=== PATIENT | female | born 1980 | race Caucasian/White ===

== ENCOUNTER 2018-07-26 13:19 | Emergency (ER) | payer MEDICAID ==
[2018-07-26 14:46] LABS: ABS Basophils 0 10^3/ul (0-0.2); ABS Eosinophils 0 10^3/ul (0-0.6); ABS Lymphocytes 1.4 10^3/ul (1.0-4.8); ABS Monocytes 0.4 10^3/ul (0-0.8); ABS Neutrophils 6.3 10^3/ul (1.5-7.7); ABS Nucleated RBC 0 10^3/ul; Eosinophil % 0.4 %; Hematocrit 39 % (35-47); Lymphocyte % 16.8 %; Mean Corpuscular HGB Conc 33 g/dl (31-36); Mean Corpuscular Hemoglobin 28 pg (27-31); Mean Corpuscular Volume 83 fL (80-97); Mean Platelet Volume 7.5 fL (7.4-10.4); Nucleated Red Blood Cells % 0; Platelet Count 318 10^3/ul (150-450); Red Cell Distribution Width 13 % (10.5-15); White Blood Count 8.1 10^3/ul (3.5-10.8)
[2018-07-26 15:01] LABS: Albumin 4.8 g/dL (3.2-5.2); Anion Gap 7 mmol/L (2-11); CO2 Carbon Dioxide 25 mmol/L (22-32); Calcium 9.7 mg/dL (8.6-10.3); Chloride 104 mmol/L (101-111); Potassium 3.6 mmol/L (3.5-5.0); Sodium 136 mmol/L (135-145)
[2018-07-26 15:07] LABS: ALT 17 U/L (7-52); AST 18 U/L (13-39); Albumin/Globulin Ratio 1.7 (1-3); Alkaline Phosphatase 68 U/L (34-104); BUN/Creatinine Ratio 15.5 (8-20); Blood Urea Nitrogen 13 mg/dL (6-24); EGFR African American 92.3 (>60); EGFR Non-African American 76.3 (>60); Globulin 2.9 g/dL (2-4); Glucose 110 mg/dL (70-100); Total Protein 7.7 g/dL (6.4-8.9)
[2018-07-26 15:12] LABS: HCG Pregnancy < 0.60 mIU/mL
[2018-07-26] MEDS ORDERED: Iohexol 300* (CONTRAST) 10 ML SDV IV ONE ×2 (15:19→16:53)
--- NOTE | 2018-07-26 15:35 | ED ---
GI/ HPI - HPI Summary HPI Summary: Patient is a 38-year-old female who presents emergency department for who presents emergency department complaining of rectal pain 2 weeks. Patient states pain increases after a bowel movement. She denies blood in stools. Patient denies fever, chills. Patient states she feels as though there is a lump around her anus. She denies concern for STD or anal sex. Pt. was seen at the [facility] this week by Sujata Marshall NP who suspects pt. has levator ani syndrome and has set pt. up with PT for this week but she is concerned there may be something else going on causing rectal pain and recommended pt. come to the ER for labs and possible imaging. Symptoms are moderate in severity. No current modifying factors. - History of Current Complaint Chief Complaint: EDRectalPain Time Seen by Provider: 07/26/18 13:35 Stated Complaint: RECTAL PAIN Hx Obtained From: Patient Pain Intensity: 2 - Allergy/Home Medications Allergies/Adverse Reactions: Allergies Allergy/AdvReac Type Severity Reaction Status Date / Time amoxicillin Allergy Diarrhea Verified 07/26/18 13:26 doxycycline Allergy Hives/Diff. Verified 07/26/18 13:26 Breathing/I tching Penicillins Allergy Vomiting Verified 07/26/18 13:26 Home Medications: Home Medications NK [No Home Medications Reported] 07/26/18 [History Confirmed 07/26/18] PMH/Surg Hx/FS Hx/Imm Hx Previously Healthy: Yes Endocrine/Hematology History: Denies: Hx Diabetes Cardiovascular History: Denies: Hx Hypertension History: Denies: Hx Renal Disease Infectious Disease History: No Infectious Disease History: Denies: Traveled Outside the [place] in Last 30 Days - Family History Known Family History: Positive: Non-Contributory - Social History Occupation: Works From/At Home Lives: With Family Alcohol Use: Occasionally Substance Use Type: Reports: None Smoking Status (MU): Never Smoked Tobacco Review of Systems Constitutional: Negative Negative: Fever, Chills Gastrointestinal: Other - rectal pain Positive: Other. Negative: Abdominal Pain, Vomiting, Diarrhea, Nausea All Other Systems Reviewed And Are Negative: Yes Physical Exam Triage Information Reviewed: Yes Vital Signs On Initial Exam: Initial Vitals Temp Pulse Resp BP Pulse Ox 98.7 F 69 18 131/91 100 07/26/18 13:20 07/26/18 13:20 07/26/18 13:20 07/26/18 13:20 07/26/18 13:20 Vital Signs Reviewed: Yes Appearance: Positive: Well-Appearing - Pt. sitting up in bed in NAD. Mother present. Skin: Positive: Warm, Dry Head/Face: Positive: Normal Head/Face Inspection Eyes: Positive: Normal, EOMI Abdomen Description: Positive: Nontender, Soft, Other: - Recal exam performed with female tech in room, Jillian. Nonthrombosed hemorrhoids noted. Pain on palpation to the left aspect of the rectum around 9:00. There is induration palpated this area. Attempted to perform digital rectal exam but patient was in significant pain and was not able to fully evaluate rectum. No bleeding. No obvious signs of abscess or fissure. Musculoskeletal: Positive: Normal, Strength/ROM Intact Neurological: Positive: Normal, CN Intact II-III Diagnostics - Vital Signs Vital Signs Temp Pulse Resp BP Pulse Ox 07/26/18 13:20 98.7 F 69 18 131/91 100 - Laboratory Lab Results: Lab Results 07/26/18 07/26/18 Range/Units 14:23 14:23 WBC 8.1 (3.5-10.8) 10^3/ul RBC 4.70 (4.00-5.40) 10^6/ul Hgb 13.0 (12.0-16.0) g/dl Hct 39 (35-47) % MCV 83 (80-97) fL MCH 28 (27-31) pg MCHC 33 (31-36) g/dl RDW 13 (10.5-15) % Plt Count 318 (150-450) 10^3/ul MPV 7.5 (7.4-10.4) fL Neut % (Auto) 78.0 % Lymph % (Auto) 16.8 % [place]ack[place]ord % (Auto) 4.5 % Eos % (Auto) 0.4 % Baso % (Auto) 0.3 % Absolute Neuts (auto) 6.3 (1.5-7.7) 10^3/ul Absolute Lymphs (auto) 1.4 (1.0-4.8) 10^3/ul Absolute Monos (auto) 0.4 (0-0.8) 10^3/ul Absolute Eos (auto) 0 (0-0.6) 10^3/ul Absolute Basos (auto) 0 (0-0.2) 10^3/ul Absolute Nucleated RBC 0 10^3/ul Nucleated RBC % 0 Sodium 136 (135-145) mmol/L Potassium 3.6 (3.5-5.0) mmol/L Chloride 104 (101-111) mmol/L Carbon Dioxide 25 (22-32) mmol/L Anion Gap 7 (2-11) mmol/L BUN 13 (6-24) mg/dL Creatinine 0.84 (0.51-0.95) mg/dL Est GFR ( Amer) 92.3 (>60) Est GFR (Non-Af Amer) 76.3 (>60) BUN/Creatinine Ratio 15.5 (8-20) Glucose 110 H (70-100) mg/dL Calcium 9.7 (8.6-10.3) mg/dL Total Bilirubin 0.50 (0.2-1.0) mg/dL AST 18 (13-39) U/L ALT 17 (7-52) U/L Alkaline Phosphatase 68 (34-104) U/L C-Reactive Protein 7.60 (<8.01) mg/L Total Protein 7.7 (6.4-8.9) g/dL Albumin 4.8 (3.2-5.2) g/dL Globulin 2.9 (2-4) g/dL Albumin/Globulin Ratio 1.7 (1-3) Beta HCG, Quant < 0.60 mIU/mL Result Diagrams: 07/26/18 14:23 07/26/18 14:23 Lab Statement: Any lab studies that have been ordered have been reviewed, and results considered in the medical decision making process. GIGU Course/Dx - Course Course Of Treatment: Pt. presenting to the ER for rectal pain x 2 weeks. Pain worse after BM. Pt. states she has been feeling a hardened area around rectum. She was sent by PCP for further evalation of possible abscess. Pt. well appearing in the ER and afebrile. Exam is limited secondary to pt.'s pain. Labs and CT scan ordered. Labs are unremarkable. CT scan is negative for acute findings. Results discussed with pt. She states she has an apt. with PT in two days. She has states she was rx magnesium by PCP to try to help with spasms and pain. Advised to continue warm baths. Advised she may need to see GI/Sx for further testing and evaluation is sxs persist. Pt. understands and agrees with plan. - Diagnoses Differential Diagnoses - Female: Hemorrhoids, Prolapsed Rectum, Pruitis Ani, Rectal Fissure, STD Provider Diagnoses: Rectal pain, Rectal spasm Discharge - Sign-Out/Discharge Documenting (check all that apply): Patient Departure Patient Received Moderate/Deep Sedation with Procedure: No - Discharge Plan Condition: Good Disposition: HOME Patient Education Materials: Rectal Pain (ED) Referrals: Leah Marshall NP [Primary Care Provider] - Additional Instructions: Schedule a follow up appointment with PCP You may need to be referred to a death claim examiner for further evaluation Follow up with physical therapy on Friday as scheduled Continue warm baths Return to ER if symptoms change or worsen - Billing Disposition and Condition Condition: GOOD Disposition: Home
[2018-07-26 18:33] VITALS: BP 132/79
== END 2018-07-26 18:32 | disposition home or self-care (01) ==
LOC: ED 13:19
DX: K62.89 Other specified diseases of anus and rectum (principal); K59.4 Anal spasm; Z88.0 Allergy status to penicillin
CPT/HCPCS: 36415; 72193; 80053; 84702; 85025; 86140; 99283

== ENCOUNTER 2018-10-29 20:27 | Emergency (ER) | payer BC, MEDICAID ==
[2018-10-29] MEDS ORDERED: Ondansetron INJ* 2 MG/ML VIAL IV ONE (23:23)
[2018-10-29] MEDS ORDERED: NS 0.9% 1000 ML** 1,000 ML IV ONE (23:24)
[2018-10-29] MEDS ORDERED: Meclizine TAB* 12.5 MG PO ONE (23:24)
--- NOTE | 2018-10-29 23:33 | ED ---
Nausea/Vomiting/Diarrhea HPI - HPI Summary HPI Summary: Patient is a 38 year old female with hx of irritable bowel syndrome who c/o nausea and epigastric pain x 4 days. She denies changes in BM and vomiting. She describes the abd pain as "pressure" and rates it at 7/10 at its worst and is currently 4/10. She had a bloody BM 2-3 weeks ago but denies bloody stool since. She states she is bloated. She also notes intermittent dizziness, fatigue , chest pain, headaches, diffuse muscle pain, back pain, and shortness of breath. She states she is currently dizzy but that her dizziness worsens especially prior to and during bowel movements. She denies family hx of Crohn's and ulcerative colitis. She notes having been treated 2 weeks ago for a UTI and vaginal yeast infection and that her symptoms have since resolved. She states dizziness in worst with movement. states dizziness only last a couple seconds. no chest pain or SOB. did recently travel back from [place]. no pain or swelling in her calf muscles. her abdominal pain is worst after eating. - History of Current Complaint Chief Complaint: EDIndy Stated Complaint: HEADACHE/LIGTHEADED PER PT Time Seen by Provider: 10/29/18 22:59 Hx Obtained From: Patient Hx Last Menstrual Period: 1 week ago. Timing: Intermittent Episodes Lasting: Pain Intensity: 4 - Current. Pain Scale Used: 0-10 Numeric Location: Epigastric Character: Sharp - "Pressure" Alleviating Factor(s): Bowel Movement Nausea/Vomiting Presence: Nauseated Diarrhea Presence: No - Allergies/Home Medications Allergies/Adverse Reactions: Allergies Allergy/AdvReac Type Severity Reaction Status Date / Time amoxicillin Allergy Diarrhea Verified 10/29/18 20:35 doxycycline Allergy Hives/Diff. Verified 10/29/18 20:35 Breathing/I tching Penicillins Allergy Vomiting Verified 10/29/18 20:35 PMH/Surg Hx/FS Hx/Imm Hx Endocrine/Hematology History: Denies: Hx Diabetes Cardiovascular History: Denies: Hx Hypertension GI History: Reports: Hx Irritable Bowel History: Denies: Hx Renal Disease Psychiatric History: Reports: Hx Anxiety Infectious Disease History: No Infectious Disease History: Reports: Traveled Outside the [place] in Last 30 Days - Family History Family History: Denies FHx of inflammatory bowel disease. - Social History Occupation: Employed Full-time - [employer] driver. Alcohol Use: Occasionally - Denies recent alcohol use. Substance Use Type: Reports: None Smoking Status (MU): Never Smoked Tobacco Review of Systems Positive: Fatigue. Negative: Fever, Chills Positive: Sore Throat Positive: Chest Pain. Negative: Palpitations Positive: Shortness Of Breath. Negative: Cough Positive: Abdominal Pain - Epigastric "pressure", Nausea, Other - Bloating.. Negative: Vomiting, Diarrhea Negative: dysuria, hematuria Positive: Myalgia - Diffuse. Neurological: Other - Dizziness. Positive: Headache. Negative: Weakness, Numbness Psychological: Normal All Other Systems Reviewed And Are Negative: Yes Physical Exam Triage Information Reviewed: Yes Vital Signs On Initial Exam: Initial Vitals Temp Pulse Resp BP Pulse Ox 97.5 F 77 16 150/94 100 10/29/18 20:30 10/29/18 20:30 10/29/18 20:30 10/29/18 20:30 10/29/18 20:30 Vital Signs Reviewed: Yes Appearance: Positive: Well-Appearing Skin: Positive: Warm, Dry Head/Face: Positive: Normal Head/Face Inspection Eyes: Positive: Normal ENT: Positive: Normal ENT inspection, Pharynx normal. Negative: Pharyngeal erythema Neck: Positive: Supple, Nontender, No Lymphadenopathy Respiratory/Lung Sounds: Positive: Clear to Auscultation. Negative: Rales, Rhonchi Cardiovascular: Positive: Normal, RRR. Negative: Murmur, Rub Abdomen Description: Positive: Soft, CVA Tenderness (R). Negative: Nontender - Epigastric tenderness., Distended, Guarding Bowel Sounds: Positive: Present Musculoskeletal: Positive: Normal Neurological: Positive: Sensory/Motor Intact, Alert, Oriented to Person Place, Time, CN Intact II-III Psychiatric: Positive: Normal Diagnostics - Vital Signs Vital Signs Temp Pulse Resp BP Pulse Ox 10/29/18 20:30 97.5 F 77 16 150/94 100 - Laboratory Result Diagrams: 10/29/18 23:36 10/29/18 23:36 Lab Statement: Any lab studies that have been ordered have been reviewed, and results considered in the medical decision making process. - Ultrasound No standard instances Ultrasound Interpretation Completed By: Radiologist Summary of Ultrasound Findings: Negative right upper quadrant sonogram. No gallstones. - EKG No standard instances Cardiac Rate: NL EKG Rhythm: Sinus Rhythm Summary of EKG Findings: sinus rhythm Re-Evaluation - Re-Evaluation First Eval Re-Evaluation Time: 00:45 Change: Improved Comment: Patient reports epigastric pain and nausea have resolved. She has developed a headache. Second Eval Re-Evaluation Time: 01:40 Comment: headache resolved, denies any current symptoms, discussed hcg in indeterminated. patient had a follow up with concrete worker this morning and evening was normal and had neg urine Naus/Vom/Diarrhea Course/Dx - Course Course Of Treatment: 38 year old female presents with many complaints for the past 4 days. She states that she is currently a little bit dizzy and having epigastric pain. States she has occasional headaches. admits to occasional chest pain shortness breath. Denies any current chest pressures or shortness of breath. dizziness is worst with movement. epigastric pain is worst when she eats. no fevers. did have bloody bm two weeks ago once. on exam normal neuro exam. has epigastric tenderness. ekg shows sinus rhythm. wbc normal. troponin .01. d-dimer negative. patient is not anemic. ultrasound negative. lipase normal. hcg is indeterminate range. gave meclizine, zofran, toradol and feeling better. will discharge with zofran and omeprazole. told to follow up with primary. patient understand and agrees with plan. - Differential Dx/Diagnosis Differential Diagnoses - Female: Gastroenteritis (Viral), Cholelithiasis, Other - gastritis Provider Diagnosis: Epigastric pain, Headache, Shortness of breath, Dizziness Condition At Discharge: Good Discharge - Sign-Out/Discharge Documenting (check all that apply): Patient Departure Patient Received Moderate/Deep Sedation with Procedure: No - Discharge Plan Condition: Good Disposition: HOME Prescriptions: Meclizine TAB* [Antivert 12.5 TAB*] 25 mg PO TID #20 tab Omeprazole 20 mg PO DAILY #14 tab. Ondansetron ODT TAB* [Zofran 4 MG Odt TAB*] 4 mg PO Q6H PRN #16 tab.odt PRN Reason: Nausea Patient Education Materials: Epigastric Pain (ED) Referrals: Cayla Valero MD [Primary Care Provider] - Additional Instructions: Take omeprazole once a day take zofran every 6 hours as needed for nausea Follow up with primary within 5 days Return to ED if develop fever, blood in stool, or severe nausea and vomiting or any new or worsening symptoms - Billing Disposition and Condition Condition: GOOD Disposition: Home
[2018-10-29 23:43] LABS: ABS Basophils 0.1 10^3/ul (0-0.2); ABS Eosinophils 0.1 10^3/ul (0-0.6); ABS Lymphocytes 2.7 10^3/ul (1.0-4.8); ABS Monocytes 0.5 10^3/ul (0-0.8); ABS Neutrophils 7.3 10^3/ul (1.5-7.7); Eosinophil % 1.1 %; Hematocrit 39 % (35-47); Hemoglobin 13.1 g/dL (12.0-16.0); Lymphocyte % 25.7 %; Mean Corpuscular HGB Conc 34 g/dL (31-36); Mean Corpuscular Hemoglobin 28 pg (27-31); Mean Corpuscular Volume 82 fL (80-97); Nucleated Red Blood Cells % 0.1; Platelet Count 346 10^3/uL (150-450); Red Blood Count 4.75 10^6 /uL (3.70-4.87); Red Cell Distribution Width 14 % (10.5-15); White Blood Count 10.7 10^3/uL (3.5-10.8)
[2018-10-29] MEDS ORDERED: Pantoprazole IV* 40 MG IV ONE (23:44)
[2018-10-30 00:11] LABS: Albumin 4.6 g/dL (3.2-5.2); Albumin/Globulin Ratio 1.4 (1-3); C Reactive Protein 4.46 mg/L (<8.01); Calcium 10.1 mg/dL (8.6-10.3); EGFR African American 94.9 (>60); EGFR Non-African American 78.4 (>60); Globulin 3.2 g/dL (2-4); Potassium 4.5 mmol/L (3.5-5.0); Total Bilirubin 0.3 mg/dL (0.2-1.0); Total Protein 7.8 g/dL (6.4-8.9)
[2018-10-30 00:12] LABS: Troponin I 0.01 ng/mL (<0.04)
[2018-10-30 00:16] LABS: HCG Pregnancy 13.76 mIU/mL
[2018-10-30] MEDS ORDERED: Ketorolac INJ* 30 MG/ML 1 ML VIAL IV PUSH ONE (00:53)
[2018-10-30 02:06] VITALS: BP 120/75
== END 2018-10-30 01:41 | disposition home or self-care (01) ==
LOC: ED 20:27
DX: R10.13 Epigastric pain (principal); R42 Dizziness and giddiness; R51 Headache; R11.0 Nausea; Z88.0 Allergy status to penicillin; J02.9 Acute pharyngitis, unspecified; R53.83 Other fatigue; R07.9 Chest pain, unspecified
CPT/HCPCS: 36415; 76705; 80053; 83605; 83690; 84484; 84702; 85025; 85379; 86140; 93005; 96361; 96374; 96375; 99283; A9270-GY; J1885; J2405